=== PATIENT | male | born 1945 | race Caucasian/White ===

== ENCOUNTER 2018-03-30 15:04 | Emergency (ER) | payer OTHER ==
[~2018-03-30] VITALS: Ht 182.9 cm; Wt 104.3 kg
[2018-03-30 15:08] VITALS: Ht 182.9 cm; Wt 104.3 kg
[2018-03-30 17:52] LABS: PLATELET COUNT 168 x10^3mcL (130-400); RED CELL DISTRIBUTION WIDTH 14.4 % (11.5-14.5)
[2018-03-30 17:59] LABS: CALCIUM 8.9 mg/dL (8.5-10.1); CHLORIDE SERUM 105 mmol/L (98-107); CREATININE SERUM 1.9 mg/dL (0.7-1.3); GLUCOSE SERUM 96 mg/dL (74-106); POTASSIUM SERUM 3.8 mmol/L (3.5-5.1); SODIUM SERUM 139 mmol/L (136-145)
[2018-03-30 18:19] LABS: ALBUMIN 3.4 g/dL (3.4-5.0); ALKALINE PHOSPHATASE 78 U/L (46-116); ALT/SGPT 21 U/L (16-63); AST/SGOT 16 U/L (15-37); BILIRUBIN TOTAL 0.5 mg/dL (0.20-1.00); TOTAL PROTEIN, SERUM 7.5 g/dL (6.4-8.2)
[2018-03-30 18:33] LABS: BAND NEUTROPHIL 0 % (0-10); BASOPHIL 0 % (0-2); MONOCYTE 3 % (0-7); SEGMENTED NEUTROPHILS 88 % (37-75); rbc morphology (normal/abnorm) NORMAL (NORMAL)
[2018-03-30 19:02] VITALS: BP 175/110
== END 2018-03-30 19:02 | disposition left against medical advice (07) ==
LOC: ED 15:04
PROVIDERS: Emergency Medicine
DX: R55 Syncope and collapse (principal); R42 Dizziness and giddiness; I10 Essential (primary) hypertension; E11.9 Type 2 diabetes mellitus without complications
CPT/HCPCS: J7030